=== PATIENT | female | born 1945 | race Hispanic/Latino ===

== ENCOUNTER 2021-07-11 12:00 | Emergency (ER) | payer MEDICARE ==
[~2021-07-11] VITALS: Ht 152.4 cm; Wt 65.8 kg
[2021-07-11] MEDS ORDERED: MIRALAX17 GM PO (12:36)
[2021-07-11 12:54] VITALS: BP 180/63
== END 2021-07-11 12:44 | disposition home or self-care (01) ==
LOC: ER 12:20
DX: N81.4 Uterovaginal prolapse, unspecified (principal); I10 Essential (primary) hypertension; E11.9 Type 2 diabetes mellitus without complications; E78.5 Hyperlipidemia, unspecified
CPT/HCPCS: 99281